=== PATIENT | male | born 2000 | race Caucasian/White ===

== ENCOUNTER 2021-11-25 15:54 | Emergency (ER) | payer OTHER ==
[~2021-11-25] VITALS: Ht 172.7 cm; Wt 80.6 kg
[2021-11-25] MEDS ORDERED: KETOROLAC 30 MG/ML 1ML VIAL IM ONE (17:45)
[2021-11-25 17:56] LABS: BASO # 0.1 10^3/uL (0.0-0.2); BASO % 0.4 % (0.0-1.0); EOS # 0.2 10^3/uL (0.0-0.5); EOS % 1.1 % (0.0-3.0); HEMATOCRIT 45.3 % (42.0-52.0); HEMOGLOBIN 15.3 g/dl (13.5-17.5); LYMPH # 2.8 10^3/uL (1.5-5.0); LYMPH % 20.9 % (24.0-44.0); MEAN CORPUSCULAR HEMOGLOBIN 30.8 pg (27.0-33.0); MEAN CORPUSCULAR HGB CONC 33.8 g/dl (32.0-36.5); MEAN CORPUSCULAR VOLUME 91.3 fl (80.0-96.0); MONO # 1.2 10^3/uL (0.0-0.8); MONO % 9.2 % (2.0-8.0); NEUTROPHILS % 67.9 % (36.0-66.0); PLATELET COUNT, AUTOMATED 291 10^3/uL (150-450); RED BLOOD COUNT 4.96 10^6/uL (4.30-6.10); WHITE BLOOD COUNT 13.3 10^3/uL (4.0-10.0)
[2021-11-25 18:15] LABS: ERYTHROCYTE SEDIMENTATION RATE 17 mm/hr (0-15)
[2021-11-25 19:33] LABS: GC DNA AMPLIFICATION NEGATIVE (NEGATIVE)
[2021-11-25] MEDS ORDERED: BACT800T5 PO (20:32)
[2021-11-25] MEDS ORDERED: BACTRIM 160MG/800MG DS TAB PO ONE (20:35)
[2021-11-25 20:43] VITALS: BP 135/77
== END 2021-11-25 20:46 | disposition home or self-care (01) ==
LOC: M ED 15:54
DX: N39.0 Urinary tract infection, site not specified (principal); S30.22XA Contusion of scrotum and testes, initial encounter; W22.8XXA Striking against or struck by other objects, initial encounter; Y92.89 Other specified places as the place of occurrence of the external cause
CPT/HCPCS: 76870; 80047; 81001; 85025; 85652; 86140; 87088; 87186; 87661; 87810; 87850; 96372; 99283; J1885